=== PATIENT | male | born 1960 ===

== ENCOUNTER 2024-06-11 11:15 | Inpatient (IN) | payer OTHER ==
[~2024-06-11] VITALS: Ht 274.3 cm; Wt 90.7 kg
[2024-06-11] MEDS ORDERED: TOPROL XL100 M1 PO (14:44)
[2024-06-11] MEDS ORDERED: AZOR 10-20 MG1 EACH PO (14:45)
[2024-06-11] MEDS ORDERED: ATORVASTATIN CA10 MG PO (14:46)
[2024-06-16] MEDS ORDERED: LIDOCAINE HCL 1%/EPINEPHRINE 20ML VIAL IJ ONE (12:30)
[2024-06-16] MEDS ORDERED: METRONIDAZOLE/SODIUM CHLORIDE 500 MG/100 ML PIGGYBACK IV ONE (12:30)
[2024-06-16] MEDS ORDERED: CEFTRIAXONE SODIUM 2,000 MG VIAL IV ONE (12:30)
[2024-06-16] MEDS ORDERED: BUPIVACAINE HCL/PF 0.25% 30ML VIAL InF ONE (12:30)
[2024-06-16] MEDS ORDERED: ONDANSETRON HCL 2 MG/ML VIAL IV PRN (14:15)
[2024-06-16] MEDS ORDERED: OxyCODONE HCL 5 MG TABLET (ROXICODONE) PO PRN (14:15)
[2024-06-16] MEDS ORDERED: DEXTROSE 50 % IN WATER 0.5 G/ML DISP.SYRIN IV PRN (14:15)
[2024-06-16] MEDS ORDERED: RINGERS SOLUTION,LACTATED 1,000 ML IV SCH (14:15)
[2024-06-16] MEDS ORDERED: MORPHINE SULFATE 4 MG/ML CARTRIDGE IV PRN (14:15)
[2024-06-16] MEDS ORDERED: SUGAMMADEX SODIUM 200 MG/2 ML VIAL IV ONE (14:17)
[2024-06-16] MEDS ORDERED: MORPHINE SULFATE 4 MG/ML VIAL IV ONE (15:30)
[2024-06-16 16:13] LABS: HEMATOCRIT 40.1 % (39.0-48.0); HEMOGLOBIN 13.8 g/dL (13-16.00); MEAN CELL VOLUME 94.1 fL (80.0-100.00); MEAN CORPUSCULAR HEMOGLOBIN 32.5 pg (27.00-32.0); MEAN CORPUSCULAR HGB CONC 34.5 g/dl (32.0-36.0); PLATELET COUNT 276 K/uL (150-450); RED BLOOD COUNT 4.26 M/uL (4.00-6.00); RED CELL DISTRIBUTION WIDTH 12.9 % (11.5-14.5)
[2024-06-16 16:46] LABS: ALBUMIN 3.4 gm/dL (3.4-5.0); CALCIUM 8.5 mg/dL (8.5-10.1); CREATININE SERUM 0.73 mg/dL (0.70-1.30); GFR 108.17; MAGNESIUM 1.6 mg/dL (1.8-2.4); PHOSPHOROUS 2.9 mg/dL (2.5-4.9)
[2024-06-16] MEDS ORDERED: GABAPENTIN 300 MG CAPSULE PO SCH (17:00)
[2024-06-16] MEDS ORDERED: POLYETHYLENE GLYCOL 3350 17 GM BLIST.PACK PO SCH (17:00)
[2024-06-16 17:04] LABS: POTASSIUM 2.73 mEq/L (3.5-5.1)
[2024-06-16] MEDS ORDERED: POTASSIUM CHLORIDE 20MEQ/100ML H2O PB IV NR (18:00)
[2024-06-16] MEDS ORDERED: ACETAMINOPHEN 500 MG GEL..CAP PO SCH (20:00)
[2024-06-16] MEDS ORDERED: FAMOTIDINE/PF 20 MG/2 ML VIAL ONE (20:51)
[2024-06-16] MEDS ORDERED: ACETAMINOPHEN 500 MG GEL..CAP PO ONE (20:51)
[2024-06-16 21:00] VITALS: BP 157/71; O2SAT 94
[2024-06-16] MEDS ORDERED: FAMOTIDINE/PF 20 MG/2 ML VIAL IV PUSH SCH (21:00)
[2024-06-16 22:58] VITALS: O2SAT 93
[2024-06-17] VITALS (8 sets, daily range): BP systolic 123–152; BP diastolic 72–84; O2SAT 90–97
[2024-06-17 07:16] LABS: HEMATOCRIT 41.3 % (39.0-48.0); HEMOGLOBIN 14.5 g/dL (13-16.00); MEAN CELL VOLUME 95.7 fL (80.0-100.00); MEAN CORPUSCULAR HEMOGLOBIN 33.5 pg (27.00-32.0); PLATELET COUNT 262 K/uL (150-450); RED BLOOD COUNT 4.32 M/uL (4.00-6.00); RED CELL DISTRIBUTION WIDTH 12.7 % (11.5-14.5)
[2024-06-17 08:20] LABS: ALBUMIN 3.5 gm/dL (3.4-5.0); BLOOD UREA NITROGEN 8 mg/dL (7-18); BUN CREA RATIO 12 (7.0-25.0); CALCIUM 8.7 mg/dL (8.5-10.1); CARBON DIOXIDE 35 mEq/L (21-32); CHLORIDE 109 mmol/L (98-107); CREATININE SERUM 0.68 mg/dL (0.70-1.30); GLUCOSE FASTING 98 mg/dL (65-100); OSMOLALITY SERUM 276 MOSM/KG (275-295); PHOSPHOROUS 2.9 mg/dL (2.5-4.9); POTASSIUM 4.45 mEq/L (3.5-5.1); SODIUM 139 mmol/L (136-145)
[2024-06-17] MEDS ORDERED: METOPROLOL SUCCINATE 100 MG TAB.SR.24H PO SCH (09:00)
[2024-06-17] MEDS ORDERED: HYDROCHLOROTHIAZIDE 25 MG TABLET PO SCH (09:00)
[2024-06-17] MEDS ORDERED: PATIENTS OWN MEDICATION (MEDICAMENTO EN PISO) PO SCH (09:00)
[2024-06-17] MEDS ORDERED: ATORVASTATIN CALCIUM 10 MG TABLET PO SCH (17:00)
[2024-06-17] MEDS ORDERED: ENOXAPARIN SODIUM 40 MG/0.4 ML SYRINGE SUBCUTANEO SCH (17:00)
[2024-06-18] VITALS (9 sets, daily range): BP systolic 118–127; BP diastolic 75–76; O2SAT 88–97
[2024-06-18 06:57] LABS: HEMATOCRIT 39.1 % (39.0-48.0); HEMOGLOBIN 13.5 g/dL (13-16.00); MEAN CELL VOLUME 96.6 fL (80.0-100.00); MEAN CORPUSCULAR HEMOGLOBIN 33.3 pg (27.00-32.0); MEAN CORPUSCULAR HGB CONC 34.5 g/dl (32.0-36.0); PLATELET COUNT 247 K/uL (150-450); RED BLOOD COUNT 4.05 M/uL (4.00-6.00); RED CELL DISTRIBUTION WIDTH 12.8 % (11.5-14.5)
[2024-06-18 07:34] LABS: CALCIUM 8.7 mg/dL (8.5-10.1); CREATININE SERUM 0.73 mg/dL (0.70-1.30); GFR 108.17; MAGNESIUM 1.7 mg/dL (1.8-2.4); PHOSPHOROUS 3.3 mg/dL (2.5-4.9); POTASSIUM 3.92 mEq/L (3.5-5.1)
[2024-06-18] MEDS ORDERED: ENOXAPARIN SODIUM 40 MG/0.4 ML SYRINGE SUBCUTANEO SCH (09:00)
[2024-06-18] MEDS ORDERED: MAGNESIUM SULFATE IN WATER 50 ML IV NR (13:00)
[2024-06-19 01:00] VITALS: O2SAT 90
[2024-06-19 01:08] VITALS: BP 113/67; O2SAT 92
[2024-06-19 08:00] VITALS: BP 125/75; O2SAT 95
[2024-06-19 10:26] VITALS: O2SAT 95
[2024-06-19 12:54] VITALS: O2SAT 95
[2024-06-19] MEDS ORDERED: TYLENOL ARTHRI650 MG PO (13:54)
[2024-06-19] MEDS ORDERED: NEURONTIN300 MG PO (13:54)
[2024-06-19] MEDS ORDERED: INTESTINEX680 M1 PO (13:54)
[2024-06-19 16:00] VITALS: BP 128/75; O2SAT 97
== END 2024-06-19 18:22 | disposition home or self-care (01) | DRG 331 ==
LOC: O/R 06-16 07:00 → SURH 06-16 11:15
PROVIDERS: Internal Medicine Geriatric Medicine; ADMIT Surgery; ATTEND Surgery
PROC: 07BB4ZZ Excision of Mesenteric Lymphatic, Percutaneous Endoscopic Approach (ICD-10-PCS; 2024-06-16)
PROC: 4A12X4Z Monitoring of Cardiac Electrical Activity, External Approach (ICD-10-PCS; 2024-06-16)
PROC: 0DTF4ZZ Resection of Right Large Intestine, Percutaneous Endoscopic Approach (ICD-10-PCS; principal; 2024-06-16 15:00)
DX: D12.0 Benign neoplasm of cecum (principal); I11.9 Hypertensive heart disease without heart failure